=== PATIENT | female | born 1955 | race Caucasian/White ===

== ENCOUNTER 2020-06-30 15:19 | Outpatient (CLI) | payer MEDICARE, MEDICAID, SELFPAY ==
--- NOTE | ~2020-06-30 | CT_ITS ---
EXAMINATION: CTA chest PE protocol DATE: 06/30/2020 16:07 INDICATION: Chronic respiratory failure TECHNIQUE: Computed tomography angiography (CTA) of the chest was performed with 100 mL Omnipaque-350 intravenous contrast timed to evaluate the pulmonary arteries. Coronal maximum intensity projection 3D-reconstructions were created by the technologist. Automated exposure control and iterative reconst ruction technique were employed. Exam dose: 1028.39 mGy-cm total exam DLP. COMPARISON: 10/09/2018 CT chest noncontrast examination 03/06/2018 CT lung cancer screening FINDINGS: There is diagnostic contrast enhancement of the pulmonary arteries and no evidence of pulmo nary embolism. There is a right thyroid lobe goiter with some benign-appearing coarse calcifications. Aortic, great vessel and coronary artery calcifications. No thoracic aortic aneurysm or dissection is detected. There is prominent calcification of the renal arteries as well as calcification of the celiac and superior mesenteric arteries. Normal heart size. No pericardial effusion. No hilar or mediastinal mass lesion or lymphadenopathy is evident. Patchy groundglass infiltrates are scattered in both lungs which may indicate small airways disease. No pulmonary consolidation or suspicious pulmonary mass lesion is evident. Bilateral renal scarring. Again noted is evidence of right inferior pole probable cyst. Normal morphology of the adrenal glands. There are calcified left upper and lower lobe and middle and right lower lobe pulmonary granulomas, i n addition to calcified left hilar nodes, consistent with old granulomatous disease. There are calcified hepatic and splenic granulomas also consistent with old granulomatous disease. Diffuse idiopathic skeletal hyperostosis of the thoracic spine. Diffuse osteopenia. No suspicious osteolytic or osteoblastic lesions are noted. IMPRESSION: No evidence of pulmonary embolism Old granulomatous disease Patchy mild groundglass infiltrates scattered in both lungs, which may indicate small airways disease Extensive atherosclerosis of the thoracic aorta, abdominal aorta, coronary arteries, renal arteries, celiac and mesenteric arteries. Bilateral renal scarring Reviewed, dictated and finalized at [facility]. Reviewed, dictated and finalized at location [facility]. 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 Bilateral renal scarring
[2020-06-30 15:51] LABS: Estimated Glomerular Filt Rate > 60
== END 2020-06-30 15:20 | disposition home or self-care (01) ==
LOC: ANHIMG 15:24
PROVIDERS: PCP Family Medicine
DX: J96.10 Chronic respiratory failure, unspecified whether with hypoxia or hypercapnia (principal); E04.9 Nontoxic goiter, unspecified; N28.89 Other specified disorders of kidney and ureter; I70.0 Atherosclerosis of aorta; I25.10 Atherosclerotic heart disease of native coronary artery without angina pectoris; I70.1 Atherosclerosis of renal artery; K55.1 Chronic vascular disorders of intestine
CPT/HCPCS: 71275; Q9967

== ENCOUNTER 2020-07-11 13:02 | Outpatient (CLI) | payer MEDICARE, MEDICAID, SELFPAY ==
--- NOTE | 2020-07-11 | ECHO_ITS ---
Patient Info Name: Keisha Ceballos Age: 65 years : 1955 Gender: Female Ht: 64 in Wt: 282 lbs BSA: 2.48 m2 HR: 88 bpm BP: 148 / 75 mmHg Technical Quality: Fair Exam Date: 07/11/2020 3:21 PM Exam Location: [facility] Patient Status: Preadmit Admit Date: 07/11/2020 Staff Ordering Physician: PHYSICIAN NOT ON STAFF, NONSTAFF Furnace Room Supervisor: Juju Novak RDCS Attending Provider: PHYSICIAN NOT ON STAFF, NONSTAFF Exam Type: CA echo doppler color flow Study Info Indications - calderon Complete two-dimensional, color flow and Doppler transthoracic echocardiogram is performed. Summary 1. Complete two-dimensional, color flow and Doppler transthoracic echocardiogram is performed. 2. Left ventricular chamber dimension is normal. 3. Left ventricular systolic function is normal, estimated at 60-65%. 4. There is mildly increased left ventricular wall thickness. 5. The left ventricular diastolic function is grade I diastolic dysfunction. 6. E/e' 30 is elevated. 7. Left atrial chamber dimension is moderately enlarged. 8. There is moderate aortic valve sclerosis. 9. There is mild to moderate aortic valve stenosis with a peak velocity of 265 cm/s, mean gradient of 16 mmHg, and aortic valve area of 1.6 cm2. 10. The mitral valve has moderately calcified annulus. 11. Mild pulmonary hypertension, estimated pulmonary arterial systolic pressure is 45 mmHg. 12. Small atheroma in anterior and posterior aortic root. Left Ventricle E/e' 30 is elevated. Left ventricular chamber dimension is normal. Left ventricular systolic function is normal, estimated at 60-65%. There is mildly increased left ventricular wall thickness. The left ventricular diastolic function is grade I diastolic dysfunction. Right Ventricle Right ventricular chamber dimension is normal. Right ventricular systolic function is normal. Left Atria Left atrial chamber dimension is moderately enlarged. Right Atria Right atrial chamber dimension is normal. Aortic Valve The aortic valve is trileaflet. There is moderate aortic valve sclerosis. There is mild to moderate aortic valve stenosis with a peak velocity of 265 cm/s, mean gradient of 16 mmHg, and aortic valve area of 1.6 cm2. There is no aortic valve regurgitation. Pulmonic Valve There is no pulmonic regurgitation. Mitral Valve The mitral valve has moderately calcified annulus. There is no mitral valve stenosis. There is no mitral valve regurgitation. Tricuspid Valve There is no tricuspid valve regurgitation. Mild pulmonary hypertension, estimated pulmonary arterial systolic pressure is 45 mmHg. Pericardium/Pleural There is no pericardial effusion. Inferior Vena Cava Normal inferior vena cava with >50% collapse upon inspiration consistent with normal right atrial pressure, 5 mmHg. Aorta The aortic root size at the sinus of Valsalva is normal. Small atheroma in anterior and posterior aortic root. Left Ventricular Outflow Tract Name Value Normal LVOT 2D LVOT Diameter 2.0 cm LVOT Doppler LVOT Peak Gradient 6 mmHg LVOT Mean Gradient
--- NOTE | 2020-07-11 | ECG_ITS ---
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
== END 2020-07-11 13:03 | disposition home or self-care (01) ==
LOC: ANHCARD 08-07 13:03
PROVIDERS: PCP Family Medicine
DX: R06.09 Other forms of dyspnea (principal); I44.0 Atrioventricular block, first degree; I08.3 Combined rheumatic disorders of mitral, aortic and tricuspid valves
CPT/HCPCS: 36415; 83880; 85025; 93005; 93306

== ENCOUNTER 2020-07-11 14:28 | Outpatient (CLI) | payer MEDICARE, MEDICAID, SELFPAY ==
[2020-07-11 16:28] LABS: Basophils Absolute Auto 0.1 K/mm3 (0.0-0.1); Basophils Percent Auto 0.8 % (0.2-1.2); Eosinophils Absolute Auto 0.1 K/mm3 (0-0.3); Hematocrit 39.2 % (37.0-47.0); Hemoglobin 12.5 g/dL (12.0-15.0); Immature Granulocyte Absolute 0.04 K/mm3 (0.00-0.031); Immature Granulocyte Percent A 0.6 % (0-0.5); Lymphocytes Percent Auto 15.1 % (18.3-44.2); Mean Corpuscular HGB Conc 31.9 g/dl (32-36); Mean Corpuscular Hemoglobin 30.8 pg (26-34); Mean Corpuscular Volume 96.6 fl (80-100); Mean Platelet Volume 10.4 fl (7.4-10.4); Monocytes Absolute Auto 0.6 K/mm3 (0.1-0.6); Monocytes Percent Auto 9.4 % (2.6-8.5); Neutrophils Absolute Auto 4.8 K/mm3 (1.3-6.7); Neutrophils Percent Auto 72.1 % (45.5-73.1); Platelet Count Result 201 k/mm3 (150-375); Red Blood Count 4.06 M/mm3 (4.2-5.4); Red Cell Distribution Width 13.2 % (11.5-14.5); White Blood Count 6.6 K/mm3 (4.5-10.0)
[2020-07-11 16:55] LABS: NT Pro B Type Natriuretic Pept 503 PG/ML (5-100)
== END 2020-07-11 14:29 | disposition home or self-care (01) ==
PROVIDERS: PCP Family Medicine
DX: J45.909 Unspecified asthma, uncomplicated (principal); R06.09 Other forms of dyspnea
CPT/HCPCS: 36415; 83880; 85025

== ENCOUNTER 2020-08-01 09:00 | Outpatient (CLI) | payer MEDICARE, MEDICAID, SELFPAY ==
[2020-08-01 09:32] VITALS: O2SAT 89
[2020-08-01 09:35] VITALS: O2SAT 86
[2020-08-01 09:40] VITALS: O2SAT 89
[2020-08-01 09:50] VITALS: O2SAT 92
--- NOTE | 2020-08-01 11:08 | HOMEO2EVAL ---
Home Oxygen Evaluation RC: Home Oxygen (O2) Evaluation Start: 08/01/20 11:03 Freq: Status: Active Protocol: RPE Activity Type Activity Date Activity User E-Sign Co-Sign Detail Recorded Client Recorded Date Recorded By Document 08/01/20 09:32 [email or web address] [email or web address] 08/01/20 11:08 DJO Document 08/01/20 09:35 [email or web address] [email or web address] 08/01/20 11:08 DJO Document 08/01/20 09:35 [email or web address] [email or web address] 08/01/20 11:08 DJO Document 08/01/20 09:40 [email or web address] [email or web address] 08/01/20 11:08 DJO Document 08/01/20 09:50 [email or web address] [email or web address] 08/01/20 11:08 DJO 08/01/20 08/01/20 08/01/20 09:32 09:35 09:35 Home O2 Evaluation Test Phase Resting Exercise Resting Oxygen Delivery Nasal Cannula Nasal Cannula Room Air Oxygen Flow Rate (L/min) 2 2 Pulse Oximetry (90-100 %) 89 L 86 L 86 L Ambulation Distance (feet) Home Oxygen Evaluation Comments Treatment Charges O2 Evaluation 08/01/20 08/01/20 09:40 09:50 Home O2 Evaluation Test Phase Exercise Resting Oxygen Delivery Nasal Cannula Nasal Cannula Oxygen Flow Rate (L/min) 3 2 Pulse Oximetry (90-100 %) 89 L 92 Ambulation Distance (feet) 300 Home Oxygen Evaluation Comments PT REQUIRES 2 L REST AND 3 L WITH EXERTION. SEE NOTE Treatment Charges
--- NOTE | 2020-08-01 11:09 | PCRCNOTE ---
PT FAILED SIX MIN. WALK. WALKED APPROX 300 FEET WITH STOPS , DESAT TO 86 ON 2L. INCREASED TO 3L WITH EXERTION, HOME O2 EVAL ENTERED AND FAXED
--- NOTE | 2020-08-05 09:35 | WPDPFTINT ---
PFT Interpretation PFT Interpretation: This PFT met all criteria for ATS standards and reproducibility FEV/FVC post bronchodilator 52% FEV1 45% or 0.94 liters FVC 63% or 1.83 liters There was a significant improvement in post bronchodilator FVC by 18% and 290 ml. TLC 91% RV 147% RV/TLC 63% DLCO 42% when adjusted for alveolar volume but not adjusted for hemoglobin Flow volume loops showed significant expiratory coving Impression: Severe airflow obstruction with good response to bronchodilators. Air trapping and moderately reduced diffusion capacity. This pattern is suggestive of COPD with an Asthma component. Clinical correlation is advised.
== END 2020-08-01 09:01 | disposition home or self-care (01) ==
PROVIDERS: PCP Family Medicine
DX: J96.10 Chronic respiratory failure, unspecified whether with hypoxia or hypercapnia (principal); R94.2 Abnormal results of pulmonary function studies
CPT/HCPCS: 94060; 94618; 94726; 94729

== ENCOUNTER 2021-10-26 14:52 | Outpatient (CLI) | payer MEDICARE, MEDICAID, SELFPAY ==
[2021-10-26 16:51] LABS: Free T4 Free Thyroxine 0.93 ng/mL (0.78-2.19)
[2021-10-26 17:05] LABS: Thyroid Stimulating Hormone 0.736 uIU/mL (0.465-4.680)
== END 2021-10-26 14:53 | disposition home or self-care (01) ==
LOC: ANHWCLAB 14:56
PROVIDERS: PCP Family Medicine; Visit Provider Internal Medicine Endocrinology, Diabetes & Metabolism
DX: E05.90 Thyrotoxicosis, unspecified without thyrotoxic crisis or storm (principal)
CPT/HCPCS: 36415; 84439; 84443

== ENCOUNTER 2022-05-11 11:24 | Outpatient (CLI) | payer MEDICARE, MEDICAID, SELFPAY ==
[2022-05-11 12:16] LABS: Basophils Percent Auto 0.7 % (0.2-1.2); Eosinophils Absolute Auto 0.1 K/mm3 (0-0.3); Eosinophils Percent Auto 2.2 % (0-4.4); Hematocrit 37.5 % (37.0-47.0); Hemoglobin 11.6 g/dL (12.0-15.0); Immature Granulocyte Absolute 0.07 K/mm3 (0.00-0.031); Immature Granulocyte Percent A 1.2 % (0-0.5); Lymphocytes Absolute Auto 1.07 K/mm3 (0.9-3.2); Lymphocytes Percent Auto 18.5 % (18.3-44.2); Mean Corpuscular HGB Conc 30.9 g/dl (32-36); Mean Corpuscular Hemoglobin 28.9 pg (26-34); Mean Corpuscular Volume 93.5 fl (80-100); Mean Platelet Volume 10.4 fl (7.4-10.4); Monocytes Absolute Auto 0.6 K/mm3 (0.1-0.6); Monocytes Percent Auto 10.7 % (2.6-8.5); Neutrophils Absolute Auto 3.9 K/mm3 (1.3-6.7); Neutrophils Percent Auto 66.7 % (45.5-73.1); Platelet Count Result 196 k/mm3 (150-375); Red Blood Count 4.01 M/mm3 (4.2-5.4); Red Cell Distribution Width 13.1 % (11.5-14.5); White Blood Count 5.8 K/mm3 (4.5-10.0)
[2022-05-11 12:36] LABS: Alanine Aminotransferase 39 U/L (6-35); Alkaline Phosphatase 117 U/L (38-126); Anion Gap 9 mmol/L (8-16); Aspartate Amino Transferase 35 U/L (14-36); Bilirubin,Total 0.6 mg/dL (0.2-1.3); Blood Urea Nitrogen 13 mg/dL (7-17); Calcium 9.1 mg/dL (8.4-10.2); Carbon Dioxide 35 mmol/L (22-30); Chloride 97 mmol/L (98-107); Estimated Glomerular Filt Rate 55; Glucose 119 mg/dL (65-110); Potassium 4.4 mmol/L (3.4-5.0); Sodium 141 mmol/L (137-145)
== END 2022-05-11 11:25 | disposition home or self-care (01) ==
LOC: ANHLAB 11:26
PROVIDERS: PCP Family Medicine; Visit Provider Internal Medicine Endocrinology, Diabetes & Metabolism
DX: Z78.0 Asymptomatic menopausal state (principal); E04.1 Nontoxic single thyroid nodule; E05.90 Thyrotoxicosis, unspecified without thyrotoxic crisis or storm; Z68.41 Body mass index [BMI] 40.0-44.9, adult
CPT/HCPCS: 36415; 80053; 84439; 84443; 85025

== ENCOUNTER 2022-05-25 10:24 | Outpatient (CLI) | payer MEDICARE, MEDICAID, SELFPAY ==
--- NOTE | ~2022-05-25 | US_ITS ---
EXAMINATION: US thyroid DATE: 05/25/2022 11:58 INDICATION: Nontoxic single thyroid nodule TECHNIQUE: Multiple ultrasound images of the thyroid were obtained. COMPARISON: None. FINDINGS: The right thyroid lobe measures 7.1 x 3.0 x 4.2 cm. The left thyroid lobe measures 5.3 x 2.3 x 2.5 c m. Multiple bilateral thyroid nodules. There are 3 nodules in the right thyroid and 2 in the left th yroid which are wider than tall predominately solid hypoechoic nodule with smooth margins, and multip le echogenic foci a few of which demonstrate posterior comet tailing artifact, but many without (TI-R ADS 5, highly suspicious , FNA if >=1.0 cm, annual followup is >0.5 cm). The largest in the right low er lobe measures 3.5 cm which is increased from 2.5 cm the time of the prior study. The largest the i nferior left thyroid is not significantly changed measuring 1.9 cm. Slight decrease in size of a prev iously 2.0, currently 1.6 cm solid wider than tall nodule with coarse shadowing rim calcification (TI -RADS 4, moderately suspicious , FNA if >=1.5 cm, annual followup is >=1 cm). There is normal echotex ture, echogenicity and vascular flow throughout the thyroid gland. Finally in the right lobe there is a 1.9 cm solid wider than tall isoechoic nodule with smooth margins and without echogenic foci (TI-R ADS 3, mildly suspicious , FNA if >=2.5 cm, annual followup is >=1.5 cm). Unchanged 1.3 cm wider than tall solid hypoechoic TI RADS 4 nodule with smooth margins and without echogenic foci at the right s katie of the thyroid isthmus. IMPRESSION: 1. Multinodular goiter. Would recommend ultrasound-guided biopsy of the largest an enlarging now 3.5 cm TI RADS 5 right thyroid nodule. Reviewed, dictated and finalized at location A.
== END 2022-05-25 10:25 | disposition home or self-care (01) ==
PROVIDERS: PCP Family Medicine; Visit Provider Internal Medicine Endocrinology, Diabetes & Metabolism
DX: E04.2 Nontoxic multinodular goiter (principal)
CPT/HCPCS: 76536

== ENCOUNTER 2022-08-10 11:01 | Outpatient (CLI) | payer MEDICARE, MEDICAID, SELFPAY ==
--- NOTE | ~2022-08-10 | CT_ITS ---
EXAMINATION: CT lung screening DATE: 08/10/2022 11:46 INDICATION: HX OF TOBACCO USE TECHNIQUE: Computed tomography (CT) of the chest was performed without intravenous contrast. Addition al 3D reconstructions utilizing coronal maximum intensity projection (MIP) were performed. Automated exposure control and iterative reconstruction technique were employed. The dose-length product was 46 8.75 mGy-cm. COMPARISON: 10/09/2018 FINDINGS: No interval change in multiple bilateral calcified and noncalcified pulmonary nodules. The largest no ncalcified nodules in the right middle lobe measuring 7-8 mm and maximal diameter. No new or enlargin g pulmonary nodules identified. Mosaic attenuation in the lungs consistent with small airway disease. No pneumonia, pulmonary edema or pleural effusion. Cardiomegaly. Atherosclerotic coronary artery rebecca cification. Aortic valve calcification. Thoracic aorta is normal in caliber. Persistent enlargement o f the central pulmonary arteries consistent with pulmonary arterial hypertension. No pathologically e nlarged thoracic lymphadenopathy. Multinodular goiter. Diffuse hepatic steatosis. Region of cortical atrophy at both kidneys. A few hepatic and splenic calcific lesions consistent with old granulomatous disease. There are bridging osteophytes at multiple levels in the spine, consistent with diffuse idi opathic skeletal hyperostosis (DISH). IMPRESSION: 1. Lung-RADS category 2: Benign appearance or behavior. Continue annual screening with noncontrast lo w-dose chest CT in 12 months. 2. Multinodular goiter. Correlate with thyroid ultrasound dated 05/25/2022 at which time ultrasound gu ided biopsy was recommended of a 3.5 cm TI RADS 5 right thyroid nodule. Reviewed, dictated and finalized at location L. 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 Lung-RADS category 2: Benign appearance or behavior. Continue annual screeni ng with noncontrast low-dose chest CT in 12 months. 2. Multinodular goiter. Correlate with thyroid ultrasound dated 05/25/2022 at wh ich time ultrasound guided biopsy was recommended of a 3.5 cm TI RADS 5 right t hyroid nodule.
== END 2022-08-10 11:02 | disposition home or self-care (01) ==
LOC: ANHIMG 11:02
PROVIDERS: PCP Family Medicine; Visit Provider Nurse Practitioner
DX: Z12.2 Encounter for screening for malignant neoplasm of respiratory organs (principal); Z87.891 Personal history of nicotine dependence; E04.2 Nontoxic multinodular goiter
CPT/HCPCS: 71271

== ENCOUNTER 2023-11-22 12:01 | Outpatient (CLI) | payer MEDICARE, MEDICAID, SELFPAY ==
[2023-11-22 16:36] LABS: Hematocrit 38.3 % (37.0-47.0); Hemoglobin 11.2 g/dL (12.0-15.0); Mean Corpuscular HGB Conc 29.2 g/dl (32-36); Mean Corpuscular Hemoglobin 27.6 pg (26-34); Mean Corpuscular Volume 94.3 fl (80-100); Mean Platelet Volume 10.6 fl (7.4-10.4); Platelet Count Result 256 k/mm3 (150-375); Red Blood Count 4.06 M/mm3 (4.2-5.4); Red Cell Distribution Width 13.7 % (11.5-14.5); White Blood Count 6.8 K/mm3 (4.5-10.0)
[2023-11-22 17:17] LABS: Alanine Aminotransferase 29 U/L (6-35); Alkaline Phosphatase 109 U/L (38-126); Anion Gap 3 mmol/L (4-12); Aspartate Amino Transferase 52 U/L (14-36); Bilirubin,Total 0.7 mg/dL (0.2-1.3); Blood Urea Nitrogen 12 mg/dL (7-17); Calcium 9.4 mg/dL (8.4-10.2); Carbon Dioxide 37 mmol/L (22-30); Chloride 94 mmol/L (98-107); Estimated Glomerular Filt Rate 55; Glucose 115 mg/dL (65-110); Potassium 4.8 mmol/L (3.4-5.0); Sodium 134 mmol/L (137-145)
[2023-11-22 18:51] LABS: Free T4 Free Thyroxine 1.03 ng/mL (0.78-2.19)
== END 2023-11-22 12:02 | disposition home or self-care (01) ==
LOC: ANHWCLAB 12:05
PROVIDERS: PCP Family Medicine; Visit Provider Internal Medicine Endocrinology, Diabetes & Metabolism
DX: E04.1 Nontoxic single thyroid nodule (principal); R74.01 Elevation of levels of liver transaminase levels; E05.90 Thyrotoxicosis, unspecified without thyrotoxic crisis or storm; Z68.41 Body mass index [BMI] 40.0-44.9, adult
CPT/HCPCS: 36415; 80053; 84439; 84443; 85027

== ENCOUNTER 2023-12-06 08:53 | Outpatient (CLI) | payer MEDICARE, MEDICAID, SELFPAY ==
[2023-12-06 10:00] VITALS: PULSE 87; O2SAT 85
[2023-12-06 10:01] VITALS: O2SAT 87
[2023-12-06 10:02] VITALS: O2SAT 91
[2023-12-06 10:05] VITALS: PULSE 107; O2SAT 87
[2023-12-06 10:06] VITALS: PULSE 109; O2SAT 89
[2023-12-06 10:15] VITALS: PULSE 84; O2SAT 93
--- NOTE | 2023-12-06 10:46 | HOMEO2EVAL ---
Evaluation was performed at [facility] Home Oxygen Evaluation RC: Home Oxygen (O2) Evaluation Start: 12/06/23 10:43 Freq: Status: Active Protocol: RPE Activity Type Activity Date Activity User E-sign Co-sign Detail Recorded Client Recorded Date Recorded By Document 12/06/23 10:00 TAWANDA [email or web address] 12/06/23 10:46 TAWANDA Document 12/06/23 10:01 TAWANDA [email or web address] 12/06/23 10:46 TAWANDA Document 12/06/23 10:02 TAWANDA [email or web address] 12/06/23 10:46 TAWNADA Document 12/06/23 10:05 TAWANDA [email or web address] 12/06/23 10:46 TAWANDA Document 12/06/23 10:06 TAWANDA [email or web address] 12/06/23 10:46 TAWANDA Document 12/06/23 10:15 TAWANDA [email or web address] 12/06/23 10:46 TAWANDA 12/06/23 12/06/23 12/06/23 10:00 10:01 10:02 Home O2 Evaluation [Oxygen] -Test Phase Resting Resting Resting -Oxygen Delivery Room Air Nasal Cannula Nasal Cannula -Oxygen Flow Rate (L/min) 2 3 [Pulse Oximetry] -Pulse Oximetry (90-100 %) 85 L 87 L 91 [Pulse Rate] -Pulse Rate (60-100 beats/min) 87 [Exercise] -Ambulation Distance (feet) -Ambulation Distance (meters) [Comments] -Home Oxygen Evaluation Comments [Charges] -Evaluation Charges O2 Evaluation by Pulmonary 12/06/23 12/06/23 12/06/23 10:05 10:06 10:15 Home O2 Evaluation [Oxygen] -Test Phase Exercise Exercise Resting -Oxygen Delivery Nasal Cannula Nasal Cannula Nasal Cannula -Oxygen Flow Rate (L/min) 3 4 3 [Pulse Oximetry] -Pulse Oximetry (90-100 %) 87 L 89 L 93 [Pulse Rate] -Pulse Rate (60-100 beats/min) 107 H 109 H 84 [Exercise] -Ambulation Distance (feet) 300 -Ambulation Distance (meters) 91.43 [Comments] -Home Oxygen Evaluation Comments Pt walked for 5 minutes. Requires 3L at rest and 4L with activity [Charges] -Evaluation Charges
--- NOTE | 2023-12-06 10:46 | PCRCNOTE ---
Home O2 eval done, no changes made to existing setting. 3 L rest and 4 L activity. Eval faxed to office staff
--- NOTE | 2023-12-06 15:16 | WPDPFTINT ---
PFT Procedure Performed PFT Procedure Performed Spirometry with Pre/Post Bronchodilator Plethysmography (Lung Vol) Diffusing Cap (DLCO) Flow Vol Loop PFT Interpretation DOS: 12/06/2023 REQUESTING: Sandie Ortega PA-C REASON FOR TESTING: COPD PULMONARY FUNCTION TESTS Results are reliable and reproducible. Repeatability of spirometry FEV1 maneuver pre and post bronchodilator is Grade A. Spirometry: The pre-bronchodilator FEV1 is 0.78 L, 36%. The pre-bronchodilator FVC is 1.16 L, 58%. The FEV1/FVC ratio is 48%. After bronchodilator, the FEV1 is 0.87 L, 40%, +11%. The FVC is 1.71 L, 62%, +6%. The FEV1/FVC ratio is 51%. Lung volumes: The total lung capacity is 4.46 L, 91%. The residual volume is 2.73 L, 129%. The RV/TLC is 61%, elevated. Airway resistance is elevated, 276%. Diffusion: DLCO is 9.1, 45%. The DLCO/VA is 3.48, 80%. Flow volume loop: The flow volume loop shows severe coving of the expiratory limb. IMPRESSION: Extremely severe obstructive ventilatory impairment without response to bronchodilator, air trapping, moderate diffusion impairment that normalizes with alveolar volume. Lack of response to bronchodilator should not preclude use if clinically indicated. Compared to prior study 08/01/2020, values are similar. On the prior study, there was a statistically significant improvement after bronchodilator administration. Rebecca Mejia MD
== END 2023-12-06 08:54 | disposition home or self-care (01) ==
LOC: ANHPFT 08:53
PROVIDERS: PCP Family Medicine; Visit Provider Physician Assistant
DX: J44.89 Other specified chronic obstructive pulmonary disease (principal); J96.10 Chronic respiratory failure, unspecified whether with hypoxia or hypercapnia; R94.2 Abnormal results of pulmonary function studies
CPT/HCPCS: 94060; 94618; 94726; 94729

== ENCOUNTER 2023-12-13 09:36 | Outpatient (CLI) | payer MEDICARE, MEDICAID, SELFPAY ==
--- NOTE | ~2023-12-13 | CT_ITS ---
EXAMINATION: CT lung screening DATE: 12/13/2023 10:04 INDICATION: Personal history of nicotine dependence TECHNIQUE: Computed tomography (CT) of the chest was performed without intravenous contrast. The dose -length product was 406.80 mGy-cm. Automated exposure control and iterative reconstruction technique were employed. COMPARISON: CT report dated 08/10/2022 FINDINGS: No significant pleural or pericardial effusion. Heart size normal. There is mild mediastina l lymphadenopathy. There is atherosclerosis of the aorta and coronary arteries. There are nonenlarged axillary lymph nodes. There is bilateral renal cortical thinning with subtle low density lesions in both kidneys, not well characterized without contrast. There is emphysema. Densely calcified granulom a in the lingula. There are mild diffuse patchy groundglass opacities in both lungs. There is scatter ed pulmonary nodules bilaterally which are not clearly calcified measuring up to 6 mm in the left low er lobe, image 71 no endobronchial lesions. No pneumothorax. IMPRESSION: 1. Lung-RADS category 3: Probably benign. Further evaluation is recommended with noncontrast low-dose chest CT in 6 months. Reviewed, dictated and finalized at location B. IMPRESSION: 1. Lung-RADS category 3: Probably benign. Further evaluation is recommended wit h noncontrast low-dose chest CT in 6 months.
== END 2023-12-13 09:37 | disposition home or self-care (01) ==
LOC: ANHIMG 09:39
PROVIDERS: PCP Family Medicine; Visit Provider Physician Assistant
DX: Z12.2 Encounter for screening for malignant neoplasm of respiratory organs (principal); Z87.891 Personal history of nicotine dependence; R91.8 Other nonspecific abnormal finding of lung field
CPT/HCPCS: 71271

== ENCOUNTER 2024-01-24 12:56 | Outpatient (CLI) | payer MEDICARE, MEDICAID, SELFPAY ==
--- NOTE | ~2024-01-24 | US_ITS ---
EXAMINATION:US venous doppler LE BI INDICATION:Bilateral leg swelling TECHNIQUE: Multiple grayscale, color flow and Doppler images of the right and left lower extremity de ep venous systems were obtained and reviewed. COMPARISON:No prior studies for comparison. FINDINGS: The common femoral, superficial femoral and popliteal veins demonstrate normal respiratory variation, augmentation and compressibility. Color flow is also seen within the posterior tibial, pe roneal, greater saphenous and profunda veins. The right peroneal vein is not visualized. Evaluation o f the capsule limited. IMPRESSION: 1: No lower extremity deep venous thrombosis. Reviewed, dictated and finalized at location B.
== END 2024-01-24 12:57 | disposition home or self-care (01) ==
PROVIDERS: PCP Family Medicine; Visit Provider Family Medicine
DX: M79.89 Other specified soft tissue disorders (principal); Z13.820 Encounter for screening for osteoporosis; Z12.31 Encounter for screening mammogram for malignant neoplasm of breast
CPT/HCPCS: 93970